=== PATIENT | female | born 1965 | race Caucasian/White ===

== ENCOUNTER 2016-11-18 06:16 | Day surgery (SDC) | payer OTHER ==
[2016-10-20 08:30] VITALS: BP 105/71
[~2016-11-18] VITALS: Ht 167.6 cm; Wt 56.0 kg
[~2016-11-18 06:16] MED LIST: VITAMIN D PO
[2016-11-18] MEDS ORDERED: CHLORHEXIDINE MOUTHWASH 15 ML UDC ONE (07:00)
[2016-11-18] MEDS ORDERED: LACTATED RINGERS 1,000 ML IV SCH (07:17)
[2016-11-18] MEDS ORDERED: LIDOCAINE 1%, 2ML SQ PRN (07:30)
[2016-11-18] MEDS ORDERED: PROPOFOL 10 MG/ML, 20ML ONE (08:11)
== END 2016-11-18 10:00 | disposition home or self-care (01) ==
LOC: OUT 06:16
PROVIDERS: ATTEND Internal Medicine Gastroenterology
DX: K29.50 Unspecified chronic gastritis without bleeding (principal); K20.9 Esophagitis, unspecified; R13.10 Dysphagia, unspecified; K21.9 Gastro-esophageal reflux disease without esophagitis; F41.9 Anxiety disorder, unspecified; Z90.710 Acquired absence of both cervix and uterus
CPT/HCPCS: 43237; 43239; 43248; 88305; J2704; J7120